=== PATIENT | male | born 1990 | race Caucasian/White ===

== ENCOUNTER 2017-06-08 14:33 | Emergency (ER) | payer OTHER ==
[~2017-06-08] VITALS: Ht 177.8 cm; Wt 155.0 kg
--- NOTE | 2017-06-08 15:21 | REP ---
Clinical: Pain and swelling. Technique: AP, lateral, bilateral oblique views of the left ankle. Findings: Marked bilateral soft tissue swelling is appreciated. AP view suggests a small avulsion fracture in the medial malleolus inferior to the tibia. Oblique view suggest the possibility of subtle nondisplaced fracture of the distal fibula. Instability to the ankle mortise is suggested as well. Impression: Swelling and findings to suggest fractures as described above along with possible soft tissue injuries leading to instability at the ankle mortise. Signed by Stevan Dominguez MD 06/08/2017 03:12 P
[2017-06-08] MEDS ORDERED: PERCOCET 5MG/325MG TAB PO ONE (16:30)
[2017-06-08] MEDS ORDERED: PERC5TAB12 PO (16:40)
[2017-06-08 17:03] VITALS: BP 125/69
== END 2017-06-08 17:11 | disposition home or self-care (01) ==
LOC: M ED 14:33
DX: S82.55XA Nondisplaced fracture of medial malleolus of left tibia, initial encounter for closed fracture (principal); S82.832A Other fracture of upper and lower end of left fibula, initial encounter for closed fracture; V29.88XA Motorcycle rider (driver) (passenger) injured in other specified transport accidents, initial encounter; Y92.89 Other specified places as the place of occurrence of the external cause